=== PATIENT | female | born 2000 | race Asian ===

== ENCOUNTER 2024-01-24 08:18 | Emergency (ER) | payer BC, OTHER ==
[~2024-01-24] VITALS: Ht 162.6 cm; Wt 63.6 kg
[2024-01-24 08:27] VITALS: TEMP 98.4
[2024-01-24 09:45] VITALS: BP 132/88; PULSE 70; RESP 18; O2SAT 100
== END 2024-01-24 10:28 | disposition home or self-care (01) ==
LOC: EMS 08:18
DX: J02.9 Acute pharyngitis, unspecified (principal)
CPT/HCPCS: 87430; 99283

== ENCOUNTER 2024-06-28 16:05 | Emergency (ER) | payer OTHER ==
[2024-06-28 21:42] LABS: APPEARANCE,URINE CLEAR (CLEAR); BILIRUBIN,URINE NEGATIVE (NEGATIVE); COLOR,URINE LIGHT YELLOW (YELLOW); GLUCOSE, URINE (UA) NEGATIVE (NEGATIVE); KETONES,URINE NEGATIVE (NEGATIVE); LEUKOCYTE ESTERASE ,URINE NEGATIVE (NEGATIVE); NITRATE,URINE NEGATIVE (NEGATIVE); OCCULT BLOOD,URINE NEGATIVE (NEGATIVE); PROTEIN,URINE NEGATIVE (NEGATIVE); SPECIFIC GRAVITIY, URINE 1.025 (1.003-1.030); UROBILINOGEN,URINE <=1.0 mg/dL (<=1.0)
[2024-06-28] MEDS: FLUCONAZOLE 150 MG TABLET PO ONE (22:30)
== END 2024-06-28 22:36 | disposition home or self-care (01) ==
LOC: EMS 16:05
DX: B37.31 Acute candidiasis of vulva and vagina (principal)
CPT/HCPCS: 81003; 87210; 99283